=== PATIENT | female | born 1945 | race Caucasian/White ===

== ENCOUNTER 2022-04-15 07:33 | Day surgery (SDC) | payer MEDICARE, BC, SELFPAY ==
[2022-04-15] MEDS: Tropicam./Phenyleph. (1/2.5%) 5 ML BTL OS ×3 (07:47→07:56)
[2022-04-15 07:48] VITALS: BP 158/80; PULSE 65; RESP 18; TEMP 36.5; O2SAT 97
--- NOTE | 2022-04-15 07:53 | W.ANESPRE ---
General Info Date of Service Date Performed: 04/15/22 Height: 5 ft 1 in Weight: 85.9 kg Body Mass Index (BMI): 35.7 Surgical Procedure: Operation Date: 04/15/22 09:10 Proposed Procedure Side Surgeon p Cataract Extraction with IOL Implant Left Quique Holly MD Meds Allergies and Home Medications Allergies Allergy/AdvReac Type Severity Reaction Status Date / Time No Known Allergies Allergy Unverified 04/15/22 07:38 Home Medication Medication Instructions Recorded atorvastatin 40 mg tablet 40 mg PO DAILY 03/28/22 clopidogrel 75 mg tablet 75 mg PO DAILY 03/28/22 escitalopram oxalate 10 mg tablet 10 mg PO DAILY 03/28/22 metoprolol succinate 50 mg 50 mg PO DAILY 03/28/22 tablet,extended release 24 hr nitroglycerin 0.4 mg sublingual 0.4 mg sublingual Q5-15M PRN 03/28/22 tablet trospium 60 mg capsule,extended 60 mg PO QAM 03/28/22 release 24 hr Current Visit Medications: Current Medications Generic Name Dose Route Start Last Admin Trade Name Freq PRN Reason Stop Dose Admin Acetaminophen 1,000 mg 04/15/22 06:00 Acetaminophen 500 Mg Tab PO Q4H PRN PRN Miscellaneous Medication 0 ml 04/15/22 06:00 Prednisolone 1%, Moxifloxacin 0.5%, Nepafenac 0.1% 5ml Btl OS DIRECTED FORMERLY [facility], 1928–1983 Miscellaneous Medication 0 ml 04/15/22 06:00 Tropicam./Phenyleph. (1/2.5%) 5 Ml Btl OS DIRECTED LUISA Tetracaine HCl 0 ml 04/15/22 06:00 Tetracaine 0.5% 4 Ml Btl OS DIRECTED FOR[facility], 1928–1983 PFSH Active Problems Active Problems: Problem Status Onset Code Nuclear sclerotic cataract of left eye H25.12 Medical History Medical History Coronary artery disease Depression Essential hypertension Exanthem due to herpes zoster Former smoker Hyperlipidemia Insomnia Overactive bladder Pain of both hip joints Panic attack situational Surgical History Surgical History H/O angioplasty 08/22/2009 History of cardiac catheterization cardiac stents, 05/22/18, 05/2021 and 06/2021, 7 stents total History of tubal ligation Tobacco Smoking/Tobacco Use Status: Former Tobacco Use Alcohol Alcohol Intake: current Alcohol intake frequency: a few times a week Substance Use Substance use: Never Substance use type: does not use Vital Signs and Lab Results Vital Signs Most Recent Vital Signs in EMR: Most Recent Vital Signs Temp Pulse Resp BP Pulse Ox 36.5 C 65 18 158/80 H 97 04/15/22 07:48 04/15/22 07:48 04/15/22 07:48 04/15/22 07:48 04/15/22 07:48 Lab Results Blood Type / Crossmatch: No Data to Display Complete Blood Count: No Data to Display Complete Metabolic Panel: No Data to Display Liver Function Panel: No Data to Display Coagulation Panel: No Data to Display Cardiac Panel: No Data to Display Arterial Blood Gas: No Data to Display Venous Blood Gas: No Data to Display Pancreas Panel: No Data to Display Thyroid Panel: No Data to Display Infectious Disease: No Data to Display Blood Cultures: No Data to Display Toxicology Panel: No Data to Display Imaging and Studies Imaging and Studies Study information below may be from another EMR and interpreted by another provider. Please see original notes in EMR for more complete details. Cardiac Catheterization Summary: LVEF per 06/2021 Cath report 72%. Patient stented: Ostial RCA 90% occlusion: SHANAE. Previously stented lesion that had restenosed. Anesthesia Assessment and Plan Anesthesia History Personal History: No History of Anesthesia Complications Family History: No Family History of Anesthesia Complications Exercise Tolerance Exercise Tolerance: Metabolic Equivalents>4 Pertinent Negatives Pertinent Negatives: No Symptoms of GERD, No Major Cardiovascular Symptoms or Complaints (Active, snowshoes. ), No Major Pulmonary Symptoms or Complaints and No History of CVA/TIA Cardiac & Pulmonary Exam Cardiac Exam: Normal S1/S2 Heart Sounds Pulmonary Exam: Clear Bilateral Breath Sounds Implantable Cardiac Device Does patient have a Pacemaker or an ICD?: No Airway Exam Known Difficult Airway: No Mallampati Class: 2 Mouth Opening: Normal (> 3cm) Thyromental Distance: Greater than 3 cm Neck Range of Motion: Full ROM Neck Circumference: Normal Teeth Condition: Normal Dentition and Removable Dentures/Plates Upper ASA Classification ASA Score: ASA 3 Emergency Case?: No NPO Status NPO Status: NPO Clears >2 hours, Solids >8 hours Anesthesia Plan Resuscitation Status: Full Code Anesthesia Technique: MAC Anesthesia Airway Planned: Natural Airway Monitors Used: Standard Monitors
[2022-04-15 08:09] VITALS: BMI 35.7
[2022-04-15] MEDS: Tetracaine 0.5% 4 ML BTL OS (09:41)
[2022-04-15] MEDS: Duovisc Viscoelastic System EACH 1 EACH (09:42)
[2022-04-15] MEDS: Balanced Salt Soln.-PLUS 500 ML BAG (09:42)
[2022-04-15] MEDS: Lidocaine 1% Pres-Free 5 ML VIAL (09:43)
[2022-04-15] MEDS: Lidocaine 2% Jelly 6 ML SYR (09:43)
[2022-04-15] MEDS: Povidone-Iodine Ophth 30 ML BTL (09:45)
[2022-04-15 09:58] VITALS: BP 91/60; PULSE 64; RESP 16; TEMP 36.4; O2SAT 98
--- NOTE | 2022-04-15 09:59 | W.PM.DSUDISC ---
Date of service: 04/15/22 Time of Service: 09:59 Discharge Plan Disposition Patient Disposition: Home Discharge Details Attending Provider: Quique Holly Primary Care Provider: Benny Monroy Home Meds and New Rx's Prescriptions: No Action atorvastatin 40 mg Tablet 40 mg PO DAILY metoprolol succinate 50 mg Tablet Extended Release 24 Hr 50 mg PO DAILY clopidogrel 75 mg Tablet 75 mg PO DAILY nitroglycerin 0.4 mg Tablet, Sublingual 0.4 mg SUBLINGUAL Q5-15M PRN Rx Instructions: do not exceed 3 doses per episode escitalopram oxalate 10 mg Tablet 10 mg PO DAILY trospium 60 mg Capsule,Extended Release 24hr 60 mg PO QAM Rx Instructions: must be taken on empty stomach at least 1 hour before a meal/food with water only Discharge Instructions Stand Alone Forms: Post-op Topical Cataract, Press Ganey (DSU) Discharge Orders Discharge Orders: Discharge Order (Routine); Ordered 04/15/22 Ordered By: Quique Holly DS: Diagnosis Discharge Diagnosis (1) Nuclear sclerotic cataract of left eye: Status: Resolved
--- NOTE | 2022-04-15 10:00 | W.PM.OP ---
Date of service: 04/15/22 Time of Service: 10:00 Operative Note Operative Note DATE OF PROCEDURE: 04/15/22 PRE-OP DIAGNOSIS: Nuclear cataract, left eye POST-OP DIAGNOSIS: same PROCEDURE: Cataract extraction using phacoemulsification with intraocular lens implant, left eye SURGEON: Quique Holly ANESTHESIA TYPE: Local By Surgeon and MAC Refer to Anesthesia Record PATHOLOGY: none sent COMPLICATIONS: None Patient was transported to: same day Patient's condition: stable Implants: Lance and Lance / [employer] Tecnis [id number] Indications: Progressive decreased vision due to cataract, left eye Procedure Description: CATARACT SURGERY OPERATIVE REPORT PREOPERATIVE DIAGNOSIS: 1. Nuclear cataract, left eye POSTOPERATIVE DIAGNOSIS: Same OPERATION: 1. Cataract extraction using phacoemulsification with posterior chamber intraocular lens implant, left eye. IOL: IOL Plant And Instrument Engineer/Model: Lance & Lance / OMAIRA Tecnis [id number] IOL Power: + 22.0 diopters IOL Serial Number: [id number] Optic Diameter: 6.0 mm Haptic/Overall Diameter: 13.0 mm PHACO INFO: Galen LM Technologiesurion Vision System with OZil and Active Fluidics Cumulative Dispersed Energy (CDE): 10.93 seconds SURGEON: Quique Holly MD, SILVESTRE ANESTHESIA: Monitored A [facility] (MAC), with local sub-tenon's anesthetic infiltration COMPLICATIONS: None SPECIMENS: None INDICATIONS FOR PROCEDURE: The patient is a 76-year-old lady with history of diminished visual acuity in her left eye secondary to the development of nuclear cataract. The option of cataract surgery was offered to the patient and she wished to proceed. PROCEDURE: The correct surgical eye was identified and marked as the left eye and the pupil was dilated in the preoperative area using mydriatics and cycloplegics. The dilated pupil size was 7.0 mm. The patient elected to proceed without oral sedation. The patient was brought to the operating room where cardiopulmonary monitoring was instituted and surgical time-out was performed, confirming the correct operative eye and IOL power. Topical anesthesia was administered and ophthalmic povidone-iodine 5% was instilled into the conjunctival fornices. Lidocaine gel was applied to the cornea and the shaun-ocular area was prepped with Betadine 10% solution and draped in the usual sterile fashion for intraocular surgery, including an aperture drape. A Tegaderm transparent film dressing was cut in half and used to cover the lashes and lid margins. Care was taken to sequester the lashes and lid margins under the Tegaderm dressing. A lid speculum was placed between the lids of the operative eye and the Galen LuxOR Revalia operating microscope was maneuvered into position. Aryan scissors were then used to make a conjunctival buttonhole approximately 6mm posterior to the limbus in the inferonasal quadrant. Blunt dissection was carried out to expose bare sclera, and a blunt-tipped sub-tenon?s anesthesia cannula was introduced and passed posteriorly along the globe where non-preserved plain lidocaine was injected into posterior sub-Tenon?s space. A sideport knife was used to make a paracentesis port superiorly/superiortemporally. Intraocular phenylephrine/lidocaine was injected int the anterior chamber.. The anterior chamber was filled with viscoelastic. A keratome knife was used to construct a 2-plane near-clear corneal tunnel extending 2.0mm into clear cornea temporally. A flap was raised on the anterior capsule and capsulorhexis forceps were used to complete a continuous curvilinear capsulorhexis of 5.0 mm. Balanced salt solution was then used to perform cortical cleaving hydrodissection and nuclear hydrodelineation until the lens could be freely rotated within the capsular bag. The lens nucleus was then disassembled and removed within the capsular bag and iris plane using phacoemulsification. Residual cortical material was removed using the 45-degree angled silicone I/A tip with 0.3mm port. The posterior capsule was carefully polished to remove as much residual lens epithelial cells as safely possible. The capsular bag was then inflated and the anterior chamber deepened with viscoelastic. The lens implant described above was inserted into the capsular bag using the OMAIRA [place] Injector. A Kuglen hook was used to dial the IOL into position. Residual viscoelastic was then removed first from posterior to the IOL, then from the anterior chamber using the I/A handpiece. The lens implant was noted to center nicely within the capsular bag. The incisions were stromally hydrated, and the anterior chamber was reformed using BSS. Then 0.5cc of moxifloxacin 1.0mg/ml were injected into the capsular bag and anterior chamber. The incisions were checked with a Weck spear and found to be secure. Several drops of ophthalmic povidone-iodine 5% were then applied to the eye followed by two drops of Imprimis combination prednisolone/moxifloxacin/nepafenac solution. The drapes were removed and a clear plastic protective eye shield was placed over the eye. The patient was then returned to Same Day Surgery in stable condition.
--- NOTE | 2022-04-15 10:08 | W.ANESPOSTOP ---
Postoperative Evaluation Date, Time and Location Date Performed: 04/15/22 Time Performed: 10:21 Patient Location: Day Surgery Unit Vital Signs Most Recent Imported Vital Signs: Most Recent Vital Signs Temp Pulse Resp BP Pulse Ox 36.4 C L 64 16 91/60 L 98 04/15/22 09:58 04/15/22 09:58 04/15/22 09:58 04/15/22 09:58 04/15/22 09:58 Pain Score Most Recent Pain Score: Most Recent Pain Score Pain Level 0 04/15/22 09:58 Assessment Mental Status: Awake (Alert & Oriented to Patient Baseline) Airway and Respiratory Function: Patent airway with normal (patient baseline) respiratory exam Cardiovascular Function: Hemodynamically Stable Hydration Status: Adequately Hydrated Nausea & Vomiting: No Nausea or Vomiting Pain: Pt. Denies Any Pain Peripheral Nerve Block: Other (Local by Dr. Holly)
[2022-04-15 10:21] VITALS: BP 138/72; PULSE 66; RESP 16; TEMP 36.4; O2SAT 97
== END 2022-04-15 10:24 | disposition home or self-care (01) ==
LOC: SUR 07:34
PROVIDERS: PCP Family Medicine; Visit Provider Ophthalmology
PROC: (CPT 66984; principal; 2022-04-15 09:00)
DX: H25.12 Age-related nuclear cataract, left eye (principal)
CPT/HCPCS: 66984; V2632

== ENCOUNTER 2022-05-13 08:49 | Day surgery (SDC) | payer MEDICARE, BC, SELFPAY ==
--- NOTE | 2022-05-13 07:08 | W.PREOPHP ---
Assessment and Plan Assessment and plan (1) Nuclear age-related cataract, right eye: Status: Acute Assessment and plan: Assessment: Visually significant cataract of the right eye. Plan: Cataract extraction with lens implantation of the right eye. History of Present Illness History of Present Illness Chief Complaint: Progressive decreased vision, right eye Narrative: The patient is a 76-year-old lady who originally presented with complaints of blurred vision at both distance and near, particularly at distance. She has difficulty with glare from bright lights at night and reading fine print on the television. On examination she was noted to have moderate bilateral nuclear cataracts with corrected visual acuity of 20/50 right eye, 20/30 left eye. The option of cataract surgery was offered to the patient and she wished to proceed, undergoing cataract surgery in the left eye on 04/15/2022. Postoperatively, she has regained uncorrected visual acuity of 20/20 in the left eye. She now presents for cataract surgery in her symptomatic right eye. Review of Systems All systems reviewed & are unremarkable except as noted in HPI and below PFSH All Active Problems Nuclear age-related cataract, right eye (Acute) Medical History Coronary artery disease Depression Essential hypertension Exanthem due to herpes zoster Former smoker Hx of colonoscopy Hyperlipidemia Insomnia Overactive bladder Pain of both hip joints Panic attack situational Surgical History H/O angioplasty 08/22/2009 History of cardiac catheterization cardiac stents, 05/22/18, 05/2021 and 06/2021, 7 stents total History of tubal ligation Social History Smoking/Tobacco Use Status: Former Tobacco Use Quit Date: 03/24/05 Smoking risk assessment performed?: Yes Alcohol Intake: current Alcohol Intake frequency: a few times a week Drug use: Never Substance use type: does not use Do you feel safe at home: Yes Do you feel safe in your relationship?: Yes Meds Allergies and Home Medications Allergies Allergy/AdvReac Type Severity Reaction Status Date / Time No Known Allergies Allergy Unverified 05/13/22 09:29 Home Medications Medication Instructions Recorded Confirmed Type atorvastatin 40 mg tablet 40 mg PO DAILY 03/28/22 05/13/22 History clopidogrel 75 mg tablet 75 mg PO DAILY 03/28/22 05/13/22 History escitalopram oxalate 10 mg tablet 10 mg PO DAILY 03/28/22 05/13/22 History metoprolol succinate 50 mg 50 mg PO DAILY 03/28/22 05/13/22 History tablet,extended release 24 hr nitroglycerin 0.4 mg sublingual 0.4 mg sublingual Q5-15M PRN 03/28/22 05/13/22 History tablet Exam Eyes Other: Corrected visual acuity in the right eye measures 20/50. Uncorrected vision in the left eye is 20/20. Extraocular motility is normal. Intraocular pressure is 18 OD, 17 OS. Slit-lamp examination is significant for pupils dilating to 5 mm OU. A dense brunescent nuclear cataract is present in the right eye. The left eye has a well-positioned PCIOL with clear posterior capsule. Funduscopic examination is significant for disc cupping of 0.3 OU with normal vessels, macula, peripheral retina and vitreous. Resp Auscultation: clear to auscultation bilaterally Cardio Rate: regular rate Rhythm: regular rhythm
[2022-05-13 09:00] VITALS: BP 152/78; PULSE 60; RESP 16; TEMP 36.3; O2SAT 97
[2022-05-13] MEDS: Tropicam./Phenyleph. (1/2.5%) 5 ML BTL OD ×3 (09:23→09:34)
--- NOTE | 2022-05-13 09:45 | W.ANESPRE ---
General Info Date of Service Date Performed: 05/13/22 Height: 5 ft 4 in Weight: 86.5 kg Body Mass Index (BMI): 32.7 Surgical Procedure: Operation Date: 05/13/22 10:40 Proposed Procedure Side Surgeon p Cataract Extraction with IOL Implant Right Quique Holly MD Meds Allergies and Home Medications Allergies Allergy/AdvReac Type Severity Reaction Status Date / Time No Known Allergies Allergy Unverified 05/13/22 09:29 Home Medication Medication Instructions Recorded atorvastatin 40 mg tablet 40 mg PO DAILY 03/28/22 clopidogrel 75 mg tablet 75 mg PO DAILY 03/28/22 escitalopram oxalate 10 mg tablet 10 mg PO DAILY 03/28/22 metoprolol succinate 50 mg 50 mg PO DAILY 03/28/22 tablet,extended release 24 hr nitroglycerin 0.4 mg sublingual 0.4 mg sublingual Q5-15M PRN 03/28/22 tablet Current Visit Medications: Current Medications Generic Name Dose Route Start Last Admin Trade Name Freq PRN Reason Stop Dose Admin Acetaminophen 1,000 mg 05/13/22 06:00 Acetaminophen 500 Mg Tab PO Q4H PRN PRN Miscellaneous Medication 0 ml 05/13/22 06:00 05/13/22 09:34 Tropicam./Phenyleph. (1/2.5%) 5 Ml Btl OD 1 drp DIRECTED LUISA Administration Miscellaneous Medication 0 ml 05/13/22 06:00 Prednisolone 1%, Moxifloxacin 0.5%, Nepafenac 0.1% 5ml Btl OD DIRECTED LUISA Tetracaine HCl 0 ml 05/13/22 06:00 Tetracaine 0.5% 4 Ml Btl OD DIRECTED LUISA PFSH Active Problems Active Problems: Problem Status Onset Code Nuclear age-related cataract, right eye H25.11 Nuclear sclerotic cataract of left eye H25.12 Medical History Medical History Coronary artery disease Depression Essential hypertension Exanthem due to herpes zoster Former smoker Hx of colonoscopy Hyperlipidemia Insomnia Overactive bladder Pain of both hip joints Panic attack situational Surgical History Surgical History H/O angioplasty 08/22/2009 History of cardiac catheterization cardiac stents, 05/22/18, 05/2021 and 06/2021, 7 stents total History of tubal ligation Tobacco Smoking/Tobacco Use Status: Former Tobacco Use Alcohol Alcohol Intake: current Alcohol intake frequency: a few times a week Substance Use Substance use: Never Substance use type: does not use Vital Signs and Lab Results Vital Signs Most Recent Vital Signs in EMR: Most Recent Vital Signs Temp Pulse Resp BP Pulse Ox 36.3 C L 60 16 152/78 H 97 05/13/22 09:00 05/13/22 09:00 05/13/22 09:00 05/13/22 09:00 05/13/22 09:00 Lab Results Blood Type / Crossmatch: No Data to Display Complete Blood Count: No Data to Display Complete Metabolic Panel: No Data to Display Liver Function Panel: No Data to Display Coagulation Panel: No Data to Display Cardiac Panel: No Data to Display Arterial Blood Gas: No Data to Display Venous Blood Gas: No Data to Display Pancreas Panel: No Data to Display Thyroid Panel: No Data to Display Infectious Disease: No Data to Display Blood Cultures: No Data to Display Toxicology Panel: No Data to Display Imaging and Studies Imaging and Studies Study information below may be from another EMR and interpreted by another provider. Please see original notes in EMR for more complete details. Cardiac Catheterization Summary: LVEF per 06/2021 Cath report 72%. Patient stented: Ostial RCA 90% occlusion: SHANAE. Previously stented lesion that had restenosed. Anesthesia Assessment and Plan Anesthesia History Personal History: No History of Anesthesia Complications Family History: No Family History of Anesthesia Complications Exercise Tolerance Exercise Tolerance: Metabolic Equivalents>4 Pertinent Negatives Pertinent Negatives: No Symptoms of GERD Cardiac & Pulmonary Exam Cardiac Exam: Normal S1/S2 Heart Sounds Pulmonary Exam: Clear Bilateral Breath Sounds Implantable Cardiac Device Does patient have a Pacemaker or an ICD?: No Airway Exam Known Difficult Airway: No Mallampati Class: 2 Mouth Opening: Normal (> 3cm) Thyromental Distance: Greater than 3 cm Neck Range of Motion: Full ROM Neck Circumference: Normal Teeth Condition: Normal Dentition and Removable Dentures/Plates Upper ASA Classification ASA Score: ASA 3 Emergency Case?: No NPO Status NPO Status: NPO Clears >2 hours, Solids >8 hours Anesthesia Plan Resuscitation Status: Full Code Anesthesia Technique: MAC Anesthesia Airway Planned: Natural Airway Monitors Used: Standard Monitors Preoperative Comments:: Cardiac stents history
[2022-05-13 09:49] VITALS: BMI 32.7
[2022-05-13] MEDS: Tetracaine 0.5% 4 ML BTL OD (10:33)
[2022-05-13] MEDS: Balanced Salt Soln.-PLUS 500 ML BAG (10:33)
[2022-05-13] MEDS: Duovisc Viscoelastic System EACH 1 EACH (10:33)
[2022-05-13] MEDS: Lidocaine 2% Jelly 6 ML SYR (10:34)
[2022-05-13] MEDS: Lidocaine 1% Pres-Free 5 ML VIAL (10:34)
[2022-05-13] MEDS: Povidone-Iodine Ophth 30 ML BTL (10:35)
[2022-05-13] MEDS: Phenylephrine/Lidocaine (15/10) MG/ML 1 ML VIAL (10:35)
[2022-05-13 10:52] VITALS: BP 113/78; PULSE 61; RESP 16; TEMP 36.6; O2SAT 98
--- NOTE | 2022-05-13 10:53 | W.PM.DSUDISC ---
Date of service: 05/13/22 Time of Service: 10:54 Discharge Plan Disposition Patient Disposition: Home Discharge Details Attending Provider: Quique Holly Primary Care Provider: Benny Monroy Home Meds and New Rx's Prescriptions: No Action atorvastatin 40 mg Tablet 40 mg PO DAILY metoprolol succinate 50 mg Tablet Extended Release 24 Hr 50 mg PO DAILY clopidogrel 75 mg Tablet 75 mg PO DAILY nitroglycerin 0.4 mg Tablet, Sublingual 0.4 mg SUBLINGUAL Q5-15M PRN Rx Instructions: do not exceed 3 doses per episode escitalopram oxalate 10 mg Tablet 10 mg PO DAILY Discharge Instructions Stand Alone Forms: Post-op Topical Cataract, Kaveh Goncalves (DSU) Discharge Orders Discharge Orders: Discharge Order (Routine); Ordered 05/13/22 Ordered By: Quique Holly DS: Diagnosis Discharge Diagnosis (1) Nuclear age-related cataract, right eye: Status: Resolved
--- NOTE | 2022-05-13 10:54 | ROE_ITS ---
Date of service: 05/13/22 Time of Service: 10:54 Operative Note Operative Note DATE OF PROCEDURE: 05/13/22 PRE-OP DIAGNOSIS: Nuclear cataract, right eye POST-OP DIAGNOSIS: same PROCEDURE: Cataract extraction using phacoemulsification with intraocular lens implant, right eye SURGEON: Quique Holly ANESTHESIA TYPE: Local By Surgeon and MAC Refer to Anesthesia Record ESTIMATED BLOOD LOSS: 0 PATHOLOGY: none sent COMPLICATIONS: None Patient was transported to: same day Patient's condition: stable Implants: Lan[employer] Lance Tecnis Eyhance DIB00 Indications: Progressive visual loss due to cataract, right eye Procedure Description: CATARACT SURGERY OPERATIVE REPORT PREOPERATIVE DIAGNOSIS: 1. Nuclear cataract, right eye POSTOPERATIVE DIAGNOSIS: Same OPERATION: 1. Cataract extraction using phacoemulsification with posterior chamber intraocular lens implant, right eye. IOL: IOL Care Aide/Model: Lance & Lance Tecnis Eyhance DIB00 IOL Power: + 22.0 diopters IOL Serial Number: [id number] Optic Diameter: 6.0mm Haptic/Overall Diameter: 13.0mm PHACO INFO: [id number] Vision System with OZil and Active Fluidics Cumulative Dispersed Energy (CDE): 13.15 seconds SURGEON: Quique Holly MD, SILVESTRE ANESTHESIA: Monitored Anesthesia Care (MAC), with local sub-tenon's anesthetic infiltration COMPLICATIONS: None SPECIMENS: None INDICATIONS FOR PROCEDURE: The patient is a 76-year-old lady with history of diminished visual acuity in both eyes secondary to the development of bilateral nuclear cataract. She has already undergone cataract surgery in the left eye and is doing well postoperatively. She now presents for cataract surgery in the right eye. PROCEDURE: The correct surgical eye was identified and marked as the right eye and the pupil was dilated in the preoperative area using mydriatics and cycloplegics. The dilated pupil size was 7.0 mm. Oral sedation was administered in the form of an Imprimis MKO Melt (midazolam 3mg/ketamine 25mg/ondansetron 2mg). The patient was brought to the operating room where cardiopulmonary monitoring was instituted and surgical time-out was performed, confirming the correct operative eye and IOL power. Topical anesthesia was administered and ophthalmic povidone-iodine 5% was instilled into the conjunctival fornices. Lidocaine gel was applied to the cornea and the shaun-ocular area was prepped with Betadine 10% solution and draped in the usual sterile fashion for intraocular surgery, including an aperture drape. A Tegaderm transparent film dressing was cut in half and used to cover the lashes and lid margins. Care was taken to sequester the lashes and lid margins under the Tegaderm dressing. A lid speculum was placed between the lids of the operative eye and the Gal[employer] Lux[employer] Revalia operating microscope was maneuvered into position. Aryan scissors were then used to make a conjunctival buttonhole approximately 6mm posterior to the limbus in the inferonasal quadrant. Blunt dissection was carried out to expose bare sclera, and a blunt-tipped sub-tenon?s anesthesia cannula was introduced and passed posteriorly along the globe where non- preserved plain lidocaine was injected into posterior sub-Tenon?s space. A sideport knife was used to make a paracentesis port inferotemporally. Intraocular phenylephrine/lidocaine was injected into the anterior chamber. The anterior chamber was filled with viscoelastic. A keratome knife was used to construct a 2-plane near-clear corneal tunnel extending 2.0mm into clear cornea superiortemporally. A flap was raised on the anterior capsule and capsulorhexis forceps were used to complete a continuous curvilinear capsulorhexis of 5.0 mm. Balanced salt solution was then used to perform cortical cleaving hydrodissection and nuclear hydrodelineation until the lens could be freely rota leanna within the capsular bag. The lens nucleus was then disassembled and removed within the capsular bag and iris plane using phacoemulsification. Residual cortical material was removed using the I/A handpiece. The posterior capsule was carefully polished to remove as much residual lens epithelial cells as safely possible. The capsular bag was then inflated and the anterior chamber deepened with viscoelastic. The lens implant described above was inserted into the capsular bag using the Lance and [employer] Simplicity pre-loaded injector. A Kuglen hook was used to dial the IOL into position. Residual viscoelastic was then removed first from posterior to the IOL, then from the anterior chamber using the I/A handpiece. The lens implant was noted to center nicely within the capsular bag. The incisions were stromally hydrated, and the anterior chamber was reformed using BSS. Then 0.5cc of moxifloxacin 1.0mg/ml were injected into the capsular bag and anterior chamber. The incisions were checked with a Weck spear and found to be secure. Several drops of ophthalmic povidone-iodine 5% were then applied to the eye followed by two drops of Imprimis combination prednisolone/moxifloxacin/nepafenac solution. The drapes were removed and a clear plastic protective eye shield was placed over the eye. The patient was then returned to [facility] Day Surgery in stable condition.
[2022-05-13 11:12] VITALS: BP 129/73; PULSE 62; RESP 16; TEMP 36.6; O2SAT 96
--- NOTE | 2022-05-13 12:59 | W.ANESPOSTOP ---
Postoperative Evaluation Date, Time and Location Date Performed: 05/13/22 Time Performed: 11:15 Patient Location: Day Surgery Unit Vital Signs Most Recent Imported Vital Signs: Most Recent Vital Signs Temp Pulse Resp BP Pulse Ox 36.6 C 62 16 129/73 96 05/13/22 11:12 05/13/22 11:12 05/13/22 11:12 05/13/22 11:12 05/13/22 11:12 Pain Score Most Recent Pain Score: Most Recent Pain Score Pain Level 0 05/13/22 11:12 Assessment Mental Status: Awake (Alert & Oriented to Patient Baseline) Airway and Respiratory Function: Patent airway with normal (patient baseline) respiratory exam Cardiovascular Function: Hemodynamically Stable Hydration Status: Adequately Hydrated Nausea & Vomiting: No Nausea or Vomiting Pain: Pt. Denies Any Pain Peripheral Nerve Block: Patient did not receive a nerve block
== END 2022-05-13 11:17 | disposition home or self-care (01) ==
LOC: SUR 08:49
PROVIDERS: PCP Family Medicine; Visit Provider Ophthalmology
PROC: (CPT 66984; principal; 2022-05-13 10:30)
DX: H25.11 Age-related nuclear cataract, right eye (principal)
CPT/HCPCS: 66984; V2632